=== PATIENT | female | born 1980 | race African-American/Black ===

== ENCOUNTER 2018-03-10 03:43 | Inpatient (IN) | payer SELFPAY ==
[2018-03-10] MEDS ORDERED: Fentanyl 100 MCG/2 ML VIAL ONE ×2 (04:23→07:12)
[2018-03-10 07:14] LABS: Hemoglobin 11.1 g/dL (12.0-16.0); Mean Corpuscular HGB CONC 32.2 g/dL (32.0-36.0); Mean Corpuscular Hemoglobin 27.2 pg (27.0-31.0); Mean Corpuscular Volume 84.3 fL (78.0-98.0); Mean Platelet Volume 9.2 fL (7.4-10.4); Platelet Count 299 thou/uL (130-400); RBC Distribution Width 14.8 % (11.5-14.5)
[2018-03-10 07:19] LABS: INR-International Normal Ratio 1.1; PTT 32.8 SEC (22.9-36.1); Prothrombin Time 14.2 SEC (12.0-14.7)
[2018-03-10 07:32] LABS: BHCG - Serum Negative (NEGATIVE); Pregs Control Background? CLEAR/WHITE (CLR/WHITE); Pregs Control Bar Appear? YES (CONTROL BAR)
[2018-03-10 07:41] LABS: ALT (SGPT) 8 U/L (8-55); AST (SGOT) 11 U/L (5-34); Albumin 2.8 g/dL (3.5-5.0); Alkaline Phosphatase 79 U/L (40-150); Anion Gap 12 mmol/L (10-20); BUN (Urea Nitrogen) 9 mg/dL (7.0-18.7); Bilirubin, Total 0.4 mg/dL (0.2-1.2); Calc. Creatinine Clearance 0 mL/min (70-130); Calcium 8.1 mg/dL (7.8-10.44); Carbon Dioxide 21 mmol/L (22-29); Chloride 106 mmol/L (98-107); Estimated GFR-MDRD Greater than 90; Globulin 3.1 g/dL (2.4-3.5); Glucose 174 mg/dL (70-105); Potassium 3.2 mmol/L (3.5-5.1); Protein, Total 5.9 g/dL (6.0-8.3); Sodium 136 mmol/L (136-145)
[2018-03-10 07:45] LABS: Troponin I Less than 0.010 ng/mL (< 0.028)
[2018-03-10 07:51] LABS: Band 10 % (5-11); Eosinophils 4 % (0-10); Lymphocytes 10 % (21-51); MDiff Complete? YES; Monocytes 4 % (0-10); Neutrophil 70 % (42-75); PLT Morphology Comment Appears Adequate; Polychromasia SLIGHT = 2-3 cells (100X) (0-2/hpf); Reactive Lymphocytes 2 % (0-10)
[2018-03-10] MEDS ORDERED: metroNIDAZOLE 500 MG/100 ML BAG ONE (08:10)
[2018-03-10] MEDS ORDERED: Potassium Chloride 20 MEQ/100 ML PREMIX BAG ONE (08:12)
[2018-03-10] MEDS ORDERED: Potassium Chloride 20 MEQ TAB PO SCH ×2 (08:15→11:00)
[2018-03-10] MEDS ORDERED: Acetaminophen 325 MG TAB PO PRN (08:15)
[2018-03-10] MEDS ORDERED: ISOVUE-370 76%-LOCM 1 ML ONE (10:08)
[2018-03-10] MEDS: Potassium Chloride 20 MEQ in Premix Bag 1 BAG IVPB SCH ×2 (10:36→11:18)
[2018-03-10 11:08] VITALS: BMI 38.0
--- NOTE | 2018-03-10 11:24 | CT ---
PRELIMINARY REPORT/[facility]/EMERGENTY AFTER-HOURS PROCEDURE CT Angiography Chest With Intravenous Contrast CLINICAL HISTORY: 37 years old, female; Pain; Chest pain; Abdominal pain; Localized; Other: Generalized; Patient HX: F3 5 presents to ed for syncope. Ems reports pt states she has been constipated all day and had gotten u p to use the restroom when she had a syncopal episode. Ems says pt complains of abd pain, distension, and difficulty breathing following the fall. Pt states she needs to use the bathroom. Pt denies taking pain medications. Ems states pt has HX of cardiac tamponade approx. 1 year ago. TECHNIQUE: Axial computed tomographic angiography images of the chest with intravenous contrast using pulmonary embolism protocol. MIP reconstructed images were created and reviewed. Coronal and sagittal reformatted images were created and reviewed. COMPARISON: No relevant prior studies available. FINDINGS: Pulmonary arteries: Limited evaluation of the pulmonary arteries due to suboptimal contrast opacifica tion, however there is no obvious central pulmonary embolism. Aorta: Somewhat limited evaluation of the ascending aorta due to motion. Otherwise no evidence of aor tic aneurysm or dissection. Lungs: No acute findings. No mass. No consolidation. Mild linear and dependent atelectasis. Few stabl e punctate nodules. Pleural space: No acute findings. No significant effusion. No pneumothorax. Heart: No cardiomegaly. Stable mild pericardial fluid. Thyroid: Probable small thyroid nodules. Bones/joints: No acute fracture. No dislocation. Soft tissues: No acute findings. Lymph nodes: Redemonstration of prominent bilateral axillary, retropectoral and mediastinal lymph nod es. IMPRESSION: No acute findings. No aortic dissection or aneurysm. CT Angiography Abdomen With Intravenous Contrast TECHNIQUE: Axial computed tomographic angiography images of the abdomen with intravenous contrast. MIP reconstru cted images were created and reviewed. Coronal and sagittal reformatted images were created and reviewed. COMPARISON: No relevant prior studies available. FINDINGS: Aorta: No acute findings. No thoracic aortic aneurysm or dissection. Celiac trunk and mesenteric arteries: No acute findings. No occlusion or significant stenosis. Renal arteries: No acute findings. No occlusion or significant stenosis. Lung bases: No acute findings. No mass. No consolidation. Liver: No acute findings. Fatty liver. No mass. Gallbladder and bile ducts: The gallbladder is contracted. Pancreas: No acute findings. No ductal dilation. No mass. Spleen: No acute findings. No splenomegaly. Adrenals: No acute findings. No mass. Kidneys and ureters: No acute findings. No hydronephrosis. No solid mass. Stomach and bowel: Ascending and transverse colon wall thickening compatible with colitis. Fluid fill ed small bowel loops could relate to enteritis. No evidence of bowel obstruction. Diverticulosis. Intraperitoneal space: No significant fluid collection. No free air. Bones/joints: No acute fracture. No dislocation. Soft tissues: No acute findings. No mass. Lymph nodes: No lymphadenopathy. IMPRESSION: Colitis and possible enteritis. No acute findings in the arteries of the abdomen. Thank you for allowing us to participate in the care of your patient. Dictated and Authenticated by: Odilon Padilla MD 03/10/2018 5:19 AM Central Time ([place] & [place]) FINAL REPORT CT ANGIOGRAM OF THE THORACIC AORTA CT ANGIOGRAM OF THE ABDOMINAL AORTA: HISTORY: Evaluate for dissection. Pain. Syncope. TECHNIQUE: CT angiogram of the thoracic and abdominal aorta performed in the axial plane. Three-dimensional ref ormatted images are submitted for interpretation. FINDINGS: This report is in agreement with the preliminary report by [facility]. No evidence of dissection or aneurys m with regards to the thoracic or abdominal aorta. There is mucosal thickening involving multiple loops of small bowel suggesting enteritis. There is a lso mucosal thickening involving the right hemicolon suggesting possible colitis. POS: [facility]
[2018-03-10 11:28] LABS: Troponin I Less than 0.010 ng/mL (< 0.028)
[2018-03-10] MEDS: Famotidine/PF 20 mg/2ml Vial SLOW IVP SCH ×2 (12:11→20:48)
--- NOTE | 2018-03-10 12:35 | CON ---
DATE OF CONSULTATION: 03/10/2018 REQUESTING PHYSICIAN: Dr. Avila in the emergency room. CHIEF COMPLAINT: Chest pain. HISTORY OF PRESENT ILLNESS: The patient is a 37-year-old black woman, who presents with about a 1-we ek history of burning chest pain. She has been having some epigastric and left upper quadrant bloati ng and cramping and early this morning feeling constipated. She went to the bathroom. On coming heena k from the bathroom, she told her family, she did not really feel right and then she fainted. She wa s brought to the emergency room where initially she was found to have a heart rate of 120 and blood p ressure 79/61, both improved with IV fluids, and at the time, I was writing my initial note, her hear t rate was 107 and blood pressure 125/84. The patient denies any fever, any cough, any pleuritic saeid ure to the chest pain, any changes in the pain associated with positioning. She says that she has be en able to consistently lie flat, as she currently is without any increase in pain or any shortness o f breath. The patient not quite 2 years ago, presented with a 3-day history of chest pain and shortn ess of breath, and at that time was found to be in tamponade with a large pericardial effusion with r ight-sided collapse on echocardiography. She was markedly tachycardic and hypotensive. At that time , about 400 mL of serous fluid was drained that had a high LDH, but had negative aerobic and anaerobi c cultures. No evidence of malignancy on cytology of fluid or pathology of the pericardium. Old bonnie trophils were seen microscopically, and grossly the pericardium was described as being acutely inflam ed. In reviewing the patient's previous encounters here, going back to 11/2012, there is a presentat ion, described as being for suicidal ideation and one for overdose. There are presentations for low back pain, headaches, dental pain, and chest pain. In reviewing previous tox screens from 11/2012- when the last tox screen here was done, there are multiple positive findings, essentially all o f the positive screens having multiple substances detected including opiates, phencyclidine, amphetam mirtha, benzodiazepines, cocaine, and cannabinoids. HOME MEDICATIONS: Listed as Zoloft, Seroquel, and Ultram. ALLERGIES: Reports an adverse reaction to MECLIZINE. SOCIAL HISTORY: She admits to smoking. PHYSICAL EXAMINATION: GENERAL: She is lying flat and is reasonably comfortable. VITAL SIGNS: Heart rate was 107, blood pressure 125/84, O2 sats 100% wearing a nonrebreather mask. She has no visible JVD even lying supine. LUNGS: She has clear breath sounds. CARDIOVASCULAR: Regular rate and rhythm. I hear no rub. ABDOMEN: Obese, soft, and nontender. She has a well-healed surgical scar consistent with a past his tory of a subxiphoid pericardial window. EXTREMITIES: She has no clubbing, cyanosis, or edema. The ER physician described a bedside ultrasound suggestive of pericardial effusion with tamponade, bu t the CT scan of her chest shows only a small amount of pericardial fluid with a somewhat thickened p ericardium. I see no dissection flaps or any obvious pulmonary emboli. Her stomach does seem to be rather distended and quite full. LABORATORY AND X-RAY FINDINGS: She had a white count of 17, hemoglobin 11.1, hematocrit 34.6, platel ets 299,000. Potassium was 3.2, otherwise electrolytes were normal. Glucose is 174, BUN 9, creatini ne 0.86. LFTs were normal. Calcium 8.1, albumin 2.8. Serum test was negative. Echocardi ography seemed to confirm thickening of her pericardium and only a very small amount of pericardial e ffusion. Her inferior cava was relatively small and the hepatic veins were collapsible. IMPRESSION AND RECOMMENDATIONS: This does not appear to be tamponade or a constrictive pericarditic process. Given the patient's past history, it might be worthwhile checking a drug screen for various substances of abuse. At this point, I do not see any need for my continued involvement.
[2018-03-10] MEDS: metroNIDAZOLE 500 MG in Premix Bag 1 BAG IVPB SCH ×2 (14:08→22:31)
[2018-03-10] MEDS: Heparin 5,000 UNITS/ML VIAL SC SCH ×2 (14:09→20:47)
[2018-03-10 14:10] LABS: Benzodiazepine Screen Detected (NotDetected); Cocaine Metabolite Screen Detected (NotDetected); Medtox Reader # READER 4; Opiate Screen Detected (NotDetected); THC/Cannabinoid Screen Detected (NotDetected); Tricyclic Screen Detected (NotDetected)
[2018-03-10 14:11] LABS: Amphetamine Not Detected (NotDetected); Barbiturates Screen Not Detected (NotDetected); Medtox Control Line Valid? VALID (VALID); Methadone Not Detected (NotDetected); Methamphetamine Not Detected (NotDetected); Oxycodone Screen Not Detected (NotDetected); Phencyclidine (PCP) Not Detected (NotDetected)
[2018-03-10 14:59] LABS: Troponin I Less than 0.010 ng/mL (< 0.028)
[2018-03-10] MEDS ORDERED: Ketorolac Tromethamine 30 MG/ML VIAL IVP PRN (17:21)
[2018-03-10] MEDS ORDERED: traMADol HCl 50 MG TAB PO PRN (17:21)
--- NOTE | 2018-03-10 19:22 | HP ---
CHIEF COMPLAINT: Abdominal pain. HISTORY OF PRESENT ILLNESS: Patient is a 37-year-old female with a history of cardiac tamponade in t he past 2 years ago and anxiety who presents to the hospital with complaints of abdominal pain. Tiffany ent stated that she ate a lot of food yesterday while she was watching movies with her family. While she was eating, she had some lower abdominal cramping, so she went to the bathroom. Stated that she only had flatulence, no bowel movement. The patient did that again the second time; however, the ird time her sister gave her Ex-Lax. Patient stated that she had significant abdominal cramping to t he point that she got very diaphoretic, got very cold and passed out. The patient denies any fevers or chills. She denies any diarrhea. She denies eating out. She states that she ate mac and cheese last night. The patient has been under a lot of stress. Her 14-year-old daughter has been admitted to [facility] for anxiety attacks. Patient denies any other symptoms. She states that she has bee n having this chest pain which has been going on for the past 2-3 weeks. ER COURSE: The patient was seen in the ER, underwent CTA, aortic dissection and also an echocardiogr am which did not indicate any tamponade. The patient also was seen by CV surgeon. No indications fo r any further investigation was noted. PAST MEDICAL HISTORY: As I mentioned, patient has a history of anxiety. She also has a history of c ardiac tamponade. PAST SURGICAL HISTORY: She has had a pericardial window and also she had had C-sections. CURRENT MEDICATIONS: The patient takes 400 mg of Seroquel at night and she takes 20 mg of Prozac in the day. ALLERGIES: She has allergies to MECLIZINE. SOCIAL HISTORY: She does smoke marijuana. Denies any alcohol or smoking history. PHYSICAL EXAMINATION: VITAL SIGNS: Her temperature is as of the following 98.2, heart rate of 107, 16, 98, 104/66. GENERAL: She is awake, alert, oriented x3, very emotional, crying. CARDIOVASCULAR: S1, S2 present. No murmurs, rubs or gallops. LUNGS: Clear upon auscultation. No rhonchi, wheezes noted. She does have pain upon palpation to he r chest area. ABDOMEN: Obese. Bowel sounds are present x2. EXTREMITIES: She has mild pain upon palpation to her lower abdominal area. Pedal pulses are present x2. NEUROLOGIC: No focal deficits noted. SKIN: No cuts or bruises or lesions noted. REVIEW OF SYSTEMS: All negative except for the ones mentioned above. LABORATORY DATA AND IMAGING DATA: WBCs of 17.0, hemoglobin of 11.1, hematocrit of 34.6, platelets of 299. She has bands of 10. Chemistry: Sodium of 136, potassium of 3.2, her BUN is 9, creatinine 0. 86, glucose of 174. Her troponin x3 has been negative. Serum test was negative. She had a CT dissection which indicated that she has ascending and transverse colon wall thickening compatibl e with colitis. ASSESSMENT AND PLAN: The patient is a very pleasant 37-year-old female comes in for abdominal pain 1. Acute colitis. Patient denies any diarrhea. She denies eating out anywhere. We will start the patient on some IV hydration. We will also give her Cipro and Flagyl. Currently, we will continue t o monitor. We will put her on n.p.o., advance as tolerated. 2. Hypokalemia. We will replace the potassium. 3. Leukocytosis, which is most likely secondary to the colitis. 4. Chest pain. Troponins x3 are negative. There is no tamponade or pericarditis that was noted. S he has been evaluated by CV Surgery also. 5. Anxiety. Patient is very anxious. She has been crying significantly since she has a lot of stre ssors at home. 6. Deep venous thrombosis prophylaxis. We will put patient on subcu heparin.
[2018-03-10] MEDS: Dextrose 5 % And 0.9 % NaCl 1,000 ML IV SCH (20:46)
[2018-03-11] MEDS: metroNIDAZOLE 500 MG in Premix Bag 1 BAG IVPB SCH (05:39)
[2018-03-11 05:51] LABS: Anion Gap 7 mmol/L (10-20); BUN (Urea Nitrogen) 5 mg/dL (7.0-18.7); Calc. Creatinine Clearance 160 mL/min (70-130); Calcium 8.3 mg/dL (7.8-10.44); Carbon Dioxide 23 mmol/L (22-29); Chloride 111 mmol/L (98-107); Estimated GFR-MDRD Greater than 90; Glucose 111 mg/dL (70-105); Potassium 3.6 mmol/L (3.5-5.1); Sodium 137 mmol/L (136-145)
[2018-03-11 05:52] LABS: #Eosinphils 0.4 thou/uL (0.0-0.7); #Lymphocytes 2.4 thou/uL (1.20-3.40); #Monocytes 0.6 thou/uL (0.11-0.59); #Neutrophils 7.5 thou/uL (1.40-6.50); %Basophils 0.1 % (0.0-1.0); %Eosinophils 3.8 % (0.0-10.0); %Lymphocytes 22.2 % (21.0-51.0); %Monocytes 5.5 % (0.0-10.0); %Neutrophils 68.4 % (42.0-75.0); Hemoglobin 10.3 g/dL (12.0-16.0); Mean Corpuscular HGB CONC 30.8 g/dL (32.0-36.0); Mean Corpuscular Hemoglobin 25.9 pg (27.0-31.0); Mean Corpuscular Volume 83.9 fL (78.0-98.0); Mean Platelet Volume 8.7 fL (7.4-10.4); Platelet Count 311 thou/uL (130-400); RBC Distribution Width 14.6 % (11.5-14.5); Red Blood Cell (RBC) Count 3.98 mill/uL (4.20-5.40); White Blood Cell (WBC) Count 10.9 thou/uL (4.8-10.8)
[2018-03-11] MEDS ORDERED: PARoxetine 20 MG TAB PO SCH (09:00)
[2018-03-11] MEDS: Famotidine/PF 20 mg/2ml Vial SLOW IVP SCH (09:14)
[2018-03-11] MEDS: Heparin 5,000 UNITS/ML VIAL SC SCH (09:15)
[2018-03-11] MEDS: Dextrose 5 % And 0.9 % NaCl 1,000 ML IV SCH (09:15)
[2018-03-11 11:53] VITALS: BP 134/82; TEMP 98.3
--- NOTE | 2018-03-11 14:16 | DIS ---
DATE OF ADMISSION: 03/10/2018 DATE OF DISCHARGE: 03/11/2018 DISCHARGE DIAGNOSES: 1. Initially was acute colitis. 2. Abdominal pain. 3. Chest pain. HOSPITAL COURSE: The patient is a very pleasant 37-year-old female with a history of cardiac tampona de, who initially presented to the hospital with abdominal cramping and also some chest discomfort. The patient initially in the ER underwent a CT dissection protocol, which did indicate that she did h ave some transverse and ascending colon thickening compatible with colitis. She also had no evidence of bowel obstruction; however, had some diverticulosis. Her CT dissection was negative for any sour ce of aneurysm or dissection. She also had an echocardiogram which indicated no cardiac tamponade, E F was 60%-65% and was essentially a normal study. She was also seen by CV Surgery for possible cardi ac tamponade, which again there was no cardiac tamponade. Patient was treated initially with IV hydr ation and with some antibiotics. She feels a lot better. She is tolerating her meals. She has had multiple bowel movements and the patient wants to go home. PHYSICAL EXAMINATION: VITAL SIGNS: 98.3, 78, 16, 98% room air, 134/82. GENERAL: She is awake, alert, oriented x3, does not appear in distress. CARDIOVASCULAR: S1, S2 present. No murmurs, rubs or gallops. ABDOMEN: Soft, nontender. Bowel sounds are present. EXTREMITIES: No edema. Pedal pulses present x2. Again, she will be discharged home. Follow up with primary. She is going to be on Augmentin 1 q.8 h ours for 5 days, Seroquel 400 at bedtime, and paroxetine 20 mg daily. She was asked to call back if her symptoms worsen.
== END 2018-03-11 11:59 | disposition home or self-care (01) | DRG 392 ==
LOC: ERS 03:43 → 2NO 09:54
PROVIDERS: ADMIT Internal Medicine; ATTEND Internal Medicine
DX: K52.9 Noninfective gastroenteritis and colitis, unspecified (principal); F41.9 Anxiety disorder, unspecified; E87.6 Hypokalemia
CPT/HCPCS: 36415; 71275; 80048; 80053; 80306; 83690; 84484; 84703; 85025; 85610; 85730; 87040; 93005; 93306; 96361; 96365; 96368; 96375; 99406; J0744; J1644; J3010; J3480; S0028

== ENCOUNTER 2020-03-27 18:34 | Inpatient (IN) | payer SELFPAY ==
[2020-03-27] MEDS ORDERED: Dexamethasone 4 mg/ml Vial ONE (19:58)
[2020-03-27] MEDS ORDERED: Morphine 4 MG/ML VIAL ONE (20:06)
[2020-03-27 22:11] LABS: SARS-CoV-2 NAA Rapid Test Not Detected (NotDetected)
--- NOTE | 2020-03-27 22:44 | HP ---
REASON FOR ADMISSION: Shortness of breath and cough. HISTORY OF PRESENT ILLNESS: This is a 39-year-old female patient who presented to the ED at [facility] reporting cough and shortness of breath that has been ongoing for the past two days. She initially was tachycardic and her oxygen saturation was in the low 90s on room air. She required to be on 1 L of oxygen. Otherwise, she has an appetite, but does not want to eat and she is coughing a lot and causing her pain in her back, which is her main complaint. She does report slight shortness of breath with ambulation. She does not endorse any fevers or chills. PAST MEDICAL HISTORY: Colitis. SOCIAL HISTORY: She smokes 6 cigarettes a day. Drinks alcohol occasionally. Smokes marijuana occasionally. ALLERGY: To meclizine. REVIEW OF SYSTEMS: All systems reviewed except the above mentioned, found to be negative. FAMILY HISTORY: Negative. PHYSICAL EXAMINATION: GENERAL: Awake, alert, oriented, is coughing quite a bit and complains of pain in her back whenever she coughs. VITAL SIGNS: Her blood pressure is 131/94, heart rate of 115, saturating 100% on 1 L nasal cannula. HEAD: Nontraumatic, normocephalic. Pupils are equal, reactive. Extraocular movements are intact. Nonicteric sclerae. Well injected conjunctivae. Oral mucosa normal. Nasal mucosa normal. NECK: Supple. No adenopathy. No murmur. Thyroid is not palpable. Trachea is midline. No supraclavicular adenopathy. CARDIAC: S1, S2 regular. No murmur. No gallops. No friction rubs. No displacement of PMI. LUNGS: Poor respiratory effort. Bowel sounds are positive, nontender. ABDOMEN: No visceromegaly, no lower extremity edema. No cyanosis noted. NEUROLOGIC: Cranial nerves 2 through 12 within normal limits. Normal motor function and sensory function. Normal reflexes. LABORATORY DATA: Blood work shows WBC of 25.3, hemoglobin of 10.4. Previous hemoglobin in 2018, 10.3, platelets of 336, and bands of 40%. D-dimer 0.74. Sodium 138, potassium 3.5, bicarb 20. IMAGING: CT of the chest shows diffuse confluent ground-glass infiltrate with upper lobe and superior segment lower lobe predominance. The periphery of the lung is relatively spared. Pulmonary edema is a consideration, but infection such as COVID is strongly considered in the differential as well. ASSESSMENT AND PLAN: This is a 39-year-old female patient presenting with what seems to be COVID pneumonia. She does complain of back pain whenever she coughs. The patient will be admitted to [facility]. will be on IV Decadron and will provide her with pain control, so she can take a full deep breath and also she will be on Lovenox for DVT prophylaxis. Job ID: [id number]
[2020-03-27] MEDS: Morphine 2 MG/ML VIAL SLOW IVP PRN (23:45)
[2020-03-27] MEDS: guaiFENesin/Codeine Phosphate 200 mg/20 mg 10 ml UD Cup PO PRN (23:45)
[2020-03-28 00:16] VITALS: BMI 35.4
[2020-03-28] MEDS: Morphine 2 MG/ML VIAL SLOW IVP PRN (03:52)
[2020-03-28] MEDS: guaiFENesin/Codeine Phosphate 200 mg/20 mg 10 ml UD Cup PO PRN (05:48)
[2020-03-28 05:56] LABS: Anion Gap 12 mmol/L (10-20); BUN (Urea Nitrogen) 8 mg/dL (7.0-18.7); Calc. Creatinine Clearance 145 mL/min (70-130); Calcium 8.9 mg/dL (7.8-10.44); Carbon Dioxide 23 mmol/L (22-29); Chloride 104 mmol/L (98-107); Estimated GFR-MDRD Greater than 90; Glucose 128 mg/dL (70-105); Potassium 3.7 mmol/L (3.5-5.1); Sodium 135 mmol/L (136-145)
[2020-03-28 05:58] LABS: Hemoglobin 9.9 g/dL (12.0-16.0); Mean Corpuscular HGB CONC 31.2 g/dL (32.0-36.0); Mean Corpuscular Hemoglobin 24.3 pg (27.0-31.0); Mean Corpuscular Volume 77.9 fL (78.0-98.0); Mean Platelet Volume 9.3 fL (7.4-10.4); Platelet Count 333 thou/uL (130-400); Red Blood Cell (RBC) Count 4.05 mill/uL (4.20-5.40); White Blood Cell (WBC) Count 23.4 thou/uL (4.8-10.8)
[2020-03-28 06:02] LABS: Band 8 % (5-11); Lymphocytes 1 % (21-51); MDiff Complete? YES; Monocytes 3 % (0-10); Neutrophil 88 % (42-75)
[2020-03-28] MEDS ORDERED: Acetaminophen 325 MG TAB PO PRN (08:21)
[2020-03-28] MEDS ORDERED: Enoxaparin Sodium 40 MG/0.4 ML SYRINGE SC SCH ×4 (09:00→21:00)
[2020-03-28] MEDS: guaiFENesin ER 600 MG TAB PO SCH ×2 (09:10→20:46)
[2020-03-28] MEDS: Ascorbic Acid 500 mg Chewable Tablet PO SCH (09:10)
[2020-03-28] MEDS: Albuterol 200 PUFF (6.7GM INHALER) INH SCH ×4 (09:40→22:20)
[2020-03-28] MEDS ORDERED: Albuterol Sulfate 2.5 mg/3 ml Neb NEB SCH (10:30)
[2020-03-28] MEDS: Dexamethasone 6 MG in Sodium Chloride 0.9% 50 ML IVPB SCH (11:07)
[2020-03-28] MEDS ORDERED: Diabetic Tussin 200 MG/10 ML UDCUP PO PRN (14:52)
[2020-03-28] MEDS ORDERED: Nicotine 14 MG PATCH TD PRN (14:54)
[2020-03-28] MEDS ORDERED: Ondansetron ODT 4 MG TAB PO PRN (14:56)
[2020-03-28] MEDS ORDERED: Ondansetron PF 4 MG/2 ML Vial IVP PRN (14:56)
[2020-03-28] MEDS ORDERED: Calcium Carbonate 500 MG ChewTAB PO PRN (14:56)
[2020-03-28] MEDS ORDERED: Senokot S 8.6-50 MG TAB PO PRN (14:56)
[2020-03-28] MEDS: HYDROcodone/Acetaminophen 5/325 mg Tablet PO PRN (14:58)
[2020-03-28] MEDS ORDERED: Vancomycin 1 GM in Premix Bag 1 BAG IVPB SCH (15:15)
[2020-03-28] MEDS: Cefepime 2 GM in Sodium Chloride 0.9% 100 ML IVPB SCH (17:06)
[2020-03-28] MEDS: Vancomycin 1 GM in Premix Bag 1 BAG IVPB SCH (17:07)
[2020-03-28] MEDS: Cyclobenzaprine 10 MG TAB PO PRN (17:10)
--- NOTE | 2020-03-28 18:39 | PDOC.HOSPP ---
- Subjective Encounter Date: 03/28/20 Encounter Time: 15:30 Subjective: Patient seen and examined for respiratory failure/sepsis. Shortness of breath slightly better. Requiring supplemental oxygen. Cough with some production. - Objective Vital Signs & Weight: Vital Signs (12 hours) Temp Pulse Resp BP Pulse Ox 03/28/20 16:00 98.6 F 98 20 136/86 96 03/28/20 14:56 98.3 F 94 18 108/75 97 03/28/20 08:00 98.6 F 79 18 119/84 99 Weight Weight 194 lb 1.6 oz I&O: 03/27/20 03/28/20 03/29/20 06:59 06:59 06:59 Intake Total 800 800 Balance 800 800 Result Diagrams: 03/28/20 05:17 03/28/20 05:17 Radiology Reviewed by me: Yes (CT chestbilateral infiltrates) Hospitalist ROS - Review of Systems Constitutional: reports: weakness, malaise Gastrointestinal: denies: nausea, vomiting, abdominal pain, diarrhea, constipation, melena, hematochezia, other Genitourinary: denies: dysuria, frequency, incontinence, hematuria, retention, other - Medication Medications: Active Medications Generic Name Dose Route Start Last Admin Trade Name Freq PRN Reason Stop Dose Admin Hydrocodone Bitart/Acetaminophen 1 tab 03/27/20 21:37 03/28/20 14:58 Hydrocodone/Acetaminophen 5/325 Mg Tablet PO 1 tab Q4H PRN Administration Pain Albuterol Sulfate 2 puff 03/28/20 10:30 03/28/20 18:12 Albuterol 200 Puff (6.7gm Inhaler) INH 2 puff G2NS-SE JOHN Administration Ascorbic Acid 1,000 mg 03/28/20 09:00 03/28/20 09:10 Ascorbic Acid 500 Mg Chewable Tablet PO 1,000 mg DAILY JOHN Administration Cyclobenzaprine HCl 5 mg 03/28/20 14:52 03/28/20 17:10 Cyclobenzaprine 10 Mg Tab PO 5 mg TIDPRN PRN Administration Muscle Spasm Guaifenesin 600 mg 03/28/20 09:00 03/28/20 09:10 Guaifenesin Er 600 Mg Tab PO 600 mg Q12HR JOHN Administration Dexamethasone 6 mg/ Sodium 50.6 mls @ 100 mls/hr 03/28/20 09:00 03/28/20 11:07 Chloride IVPB 50.6 mls DAILY JOHN Administration Cefepime HCl 2 gm/ Sodium 100 mls @ 200 mls/hr 03/28/20 16:00 03/28/20 17:06 Chloride IVPB 100 mls 0400,1600 JOHN Administration Vancomycin HCl 1 gm/ Device 200 mls @ 200 mls/hr 03/28/20 16:00 03/28/20 17:07 IVPB 200 mls 0400,1600 JOHN Administration Sodium Chloride 10 ml 03/28/20 09:00 03/28/20 09:10 Flush - Normal Saline 10 Ml Syringe IVF 10 ml Q12HR JOHN Administration - Exam General Appearance: ill appearing Neck: supple, no JVD Heart: RRR, no gallops, no rubs, normal peripheral pulses Respiratory: no wheezes, rales, rhonchi, tachypneic Gastrointestinal: soft, non-tender, normal bowel sounds, no guarding, no rigidity Extremities: no cyanosis, no clubbing Neurological: no new deficit Psychiatric: normal affect, A&O x 3 Hosp A/P - Plan DVT proph w/lovenox, DVT proph w/SCDs Acute hypoxic respiratory failure due to ? COVID-19 pneumoniaCovid PCR negative on admission (symptom onset approximately 1 week ago) Severe sepsis due to above Hyponatremia Obesity with a BMI 35.5 Chronic anemia suspected due to nutritional deficiency Tobacco dependence Plan: Continue dexamethasone. Will add vancomycin with cefepime for suspected bacterial pneumonia. Will recheck COVID-19 testing. Check inflammatory markers in a.m. Monitor vancomycin level. Lovenox for DVT prophylaxis. Continue O2 supplementation. Add bronchodilators. Continue other medications as above.
[2020-03-28] MEDS: Famotidine 20 MG TAB PO SCH (20:46)
[2020-03-28] MEDS: Zinc Sulfate 220 MG CAP PO SCH (20:46)
[2020-03-28 23:59] LABS: SARS-CoV-2 MS2 Positive; SARS-CoV-2 N Gene Negative; SARS-CoV-2 S Gene Negative; SARS-CoV-2 by NAA Not Detected (NotDetected); SARS-CoV-2 orf1ab Negative
[2020-03-29] MEDS: Cefepime 2 GM in Sodium Chloride 0.9% 100 ML IVPB SCH ×2 (03:30→15:27)
[2020-03-29] MEDS: Albuterol 200 PUFF (6.7GM INHALER) INH SCH ×6 (03:30→21:21)
[2020-03-29] MEDS: HYDROcodone/Acetaminophen 5/325 mg Tablet PO PRN ×3 (03:35→21:21)
[2020-03-29] MEDS: Cyclobenzaprine 10 MG TAB PO PRN (04:50)
[2020-03-29] MEDS: Vancomycin 1 GM in Premix Bag 1 BAG IVPB SCH ×2 (04:50→16:32)
[2020-03-29 06:25] LABS: Hemoglobin 9.2 g/dL (12.0-16.0); Mean Corpuscular HGB CONC 31.4 g/dL (32.0-36.0); Mean Corpuscular Hemoglobin 24.4 pg (27.0-31.0); Mean Corpuscular Volume 77.7 fL (78.0-98.0); Mean Platelet Volume 9.7 fL (7.4-10.4); Platelet Count 309 thou/uL (130-400); RBC Distribution Width 14.9 % (11.5-14.5); Red Blood Cell (RBC) Count 3.79 mill/uL (4.20-5.40); White Blood Cell (WBC) Count 20.6 thou/uL (4.8-10.8)
[2020-03-29 06:30] LABS: Prothrombin Time 13.8 sec (12.0-14.7)
[2020-03-29 06:31] LABS: PTT 37.5 sec (22.9-36.1)
[2020-03-29 06:32] LABS: D-Dimer Test 0.43 *mcg/mL (0.27-0.43)
[2020-03-29 06:41] LABS: ALT (SGPT) 9 U/L (8-55); AST (SGOT) 12 U/L (5-34); Albumin 3.1 g/dL (3.5-5.0); Alkaline Phosphatase 69 U/L (40-110); Anion Gap 12 mmol/L (10-20); BUN (Urea Nitrogen) 15 mg/dL (7.0-18.7); Bilirubin, Total Less than 0.2 mg/dL (0.2-1.2); CRP (Inflammatory) 5.94 mg/dL (= or < 0.5); Calc. Creatinine Clearance 136 mL/min (70-130); Calcium 8.1 mg/dL (7.8-10.44); Carbon Dioxide 22 mmol/L (22-29); Chloride 105 mmol/L (98-107); Estimated GFR-MDRD Greater than 90; Globulin 3.9 g/dL (2.4-3.5); Glucose 124 mg/dL (70-105); Iron 17 ug/dL (50-170); Iron Binding Capacity, Total 316 mcg/dL (265-497); Phosphorus 2.3 mg/dL (2.3-4.7); Potassium 3.3 mmol/L (3.5-5.1); Sodium 136 mmol/L (136-145)
[2020-03-29] MEDS ORDERED: Iron, Sodium Ferric Gluconate 250 MG in Sodium Chloride 0.9% 100 ML IVPB SCH (08:00)
[2020-03-29] MEDS ORDERED: Iron Sucrose Complex 200 MG in Sodium Chloride 0.9% 100 ML IVPB SCH (08:00)
[2020-03-29 08:14] LABS: Lymphocytes 23 % (21-51); MDiff Complete? YES; Monocytes 2 % (0-10); Neutrophil 75 % (42-75); Platelet Morphology Comment Appears Adequate
--- NOTE | 2020-03-29 09:27 | CON ---
DATE OF CONSULTATION: 03/29/2020 CONSULTING PHYSICIAN: Freddy Melendez MD REASON FOR CONSULTATION: Pneumonia. HISTORY OF PRESENT ILLNESS: Ms. Arevalo is a 39-year-old female, who was admitted to the hospital late on 03/27/2020 with complaints of 1-week history of a cold-type illness, cough, congestion, but no fever. It was initially thought that she might have COVID, although she has been exposed to no sick people. She has had 2 negative COVID tests since admission. PAST MEDICAL HISTORY: Some type of colitis. PAST SURGICAL HISTORY: Negative. SOCIAL HISTORY: Smokes 6 cigarettes per day. Occasionally smokes marijuana. Occasionally drinks alcohol. ALLERGIES: MECLIZINE. REVIEW OF SYSTEMS: Remarkable for weakness, myalgias, cough, and congestion. Otherwise, negative. FAMILY MEDICAL HISTORY: Unremarkable. MEDICATIONS PRIOR TO ADMISSION: None. CURRENT INPATIENT MEDICATIONS: Reviewed, see chart. PHYSICAL EXAMINATION: VITAL SIGNS: Temperature 98.1, pulse 76, respirations 20, O2 saturation 98% on room air, and blood pressure 112/75. HEENT: Unremarkable. NECK: No adenopathy or JVD. LUNGS: Respiratory crackles bilaterally. CARDIAC: S1 and S2, regular. ABDOMEN: Soft. EXTREMITIES: No edema. No rashes or bruising are noted. LABORATORY DATA: White blood cell count 20.6, hematocrit 29.4, and platelet count 309. INR 1.0, PTT 37.5. D-dimer 0.43. Sodium 136, potassium 3.3, chloride 105, CO2 of 22, BUN 15, creatinine 0.7, glucose 124. C-reactive protein 5.9, ferritin 41.4. Her chest x-ray and CT scan showed diffuse bilateral pulmonary infiltrates, concentrated mainly in the upper lobes. The periphery is spared. This is a typical pattern of pulmonary edema. ASSESSMENT: Atypical pneumonia versus pulmonary edema. RECOMMENDATIONS: 1. HIV test. 2. Echocardiogram. 3. Check BNP level. 4. Add Levaquin for atypical coverage. 5. Since she has had 2 negative COVID tests, I would discontinue the COVID isolation. Job ID: [id number]
[2020-03-29] MEDS: Ascorbic Acid 500 mg Chewable Tablet PO SCH (10:15)
[2020-03-29] MEDS: guaiFENesin ER 600 MG TAB PO SCH ×2 (10:18→19:46)
[2020-03-29] MEDS: Famotidine 20 MG TAB PO SCH ×2 (10:18→19:46)
[2020-03-29] MEDS: Dexamethasone 6 MG in Sodium Chloride 0.9% 50 ML IVPB SCH (10:19)
[2020-03-29 10:54] LABS: HIV (1/2) Antibody/Antigen Non-Reactive (NonReactive); HIV 1/2 INDEX 0.12 S/CO (<1.00)
[2020-03-29] MEDS ORDERED: Cyclobenzaprine 10 MG TAB PO PRN (16:22)
[2020-03-29] MEDS: Zinc Sulfate 220 MG CAP PO SCH (19:46)
[2020-03-29] MEDS ORDERED: Enoxaparin Sodium 40 MG/0.4 ML SYRINGE SC SCH (21:00)
--- NOTE | 2020-03-29 22:07 | PDOC.HOSPP ---
- Subjective Encounter Date: 03/29/20 Encounter Time: 15:20 Subjective: Patient seen and examined for sepsis with bilateral infiltrate. Short of breath on minimal exertion. Denies any chest pain. Cough with minimal production. - Objective Vital Signs & Weight: Vital Signs (12 hours) Temp Pulse Resp BP Pulse Ox 03/29/20 20:00 100 03/29/20 18:00 98.6 F 62 17 133/82 97 03/29/20 16:00 98.2 F 74 17 142/81 H 97 03/29/20 14:00 98.8 F 74 17 122/86 98 03/29/20 12:00 98.2 F 71 16 129/88 97 Weight Admit Weight 194 lb 1.6 oz Weight 194 lb 1.6 oz I&O: 03/28/20 03/29/20 03/30/20 06:59 06:59 06:59 Intake Total 800 1600 Balance 800 1600 Result Diagrams: 03/30/20 05:57 03/30/20 05:57 Additional Labs: Abnormal Lab Results - Last 48 hrs 03/29/20 06:08: Potassium 3.3 L, Total Bilirubin Less than 0.2 L, Albumin 3.1 L, Globulin 3.9 H, Albumin/Globulin Ratio 0.8 L 03/29/20 06:08: WBC 20.6 H, RBC 3.79 L, Hgb 9.2 L, Hct 29.4 L, MCV 77.7 L, MCH 24.4 L, MCHC 31.4 L, RDW 14.9 H 03/29/20 06:08: Iron 17 L, C-Reactive Protein 5.94 H 03/29/20 06:08: APTT 37.5 H Microbiology - Entire Visit 03/29/20 13:52 Nasopharyngeal swab Respiratory Virus Panel (PCR) - Final Radiology Reviewed by me: Yes (CT chestbilateral infiltrates) Hospitalist ROS - Review of Systems Cardiovascular: denies: chest pain, palpitations, orthopnea, paroxysmal noc. dyspnea, edema, light headedness, other Gastrointestinal: denies: nausea, vomiting, abdominal pain, diarrhea, c onstipation, melena, hematochezia, other - Medication Medications: Active Medications Generic Name Dose Route Start Last Admin Trade Name Freq PRN Reason Stop Dose Admin Hydrocodone Bitart/Acetaminophen 1 tab 03/27/20 21:37 03/29/20 21:21 Hydrocodone/Acetaminophen 5/325 Mg Tablet PO 1 tab Q4H PRN Administration Pain Albuterol Sulfate 2 puff 03/28/20 10:30 03/29/20 21:21 Albuterol 200 Puff (6.7gm Inhaler) INH 2 puff [id number] JOHN Administration Cyclobenzaprine HCl 10 mg 03/29/20 16:22 03/29/20 21:21 Cyclobenzaprine 10 Mg Tab PO 04/01/20 16:23 10 mg TID PRN Administration Muscle Spasm Enoxaparin Sodium 40 mg 03/29/20 21:00 03/29/20 19:45 Enoxaparin Sodium 40 Mg/0.4 Ml Syringe SC 40 mg 2100 JOHN Administration Famotidine 20 mg 03/28/20 21:00 03/29/20 19:46 Famotidine 20 Mg Tab PO 20 mg BID JOHN Administration Guaifenesin 600 mg 03/28/20 09:00 03/29/20 19:46 Guaifenesin Er 600 Mg Tab PO 600 mg Q12HR JOHN Administration Cefepime HCl 2 gm/ Sodium 100 mls @ 200 mls/hr 03/28/20 16:00 03/29/20 15:27 Chloride IVPB 100 mls 0400,1600 JOHN Administration Vancomycin HCl 1 gm/ Device 200 mls @ 200 mls/hr 03/28/20 16:00 03/29/20 1 6:32 IVPB 200 mls 0400,1600 JOHN Administration Levofloxacin 750 mg/ Device 150 mls @ 100 mls/hr 03/29/20 10:00 03/29/20 12:21 IVPB 150 mls Q24HR JOHN Administration Sodium Chloride 10 ml 03/28/20 09:00 03/29/20 19:46 Flush - Normal Saline 10 Ml Syringe IVF 10 ml Q12HR JOHN Administration - Exam General Appearance: ill appearing Neck: supple, no JVD Heart: RRR, no gallops, no rubs, normal peripheral pulses Respiratory: no wheezes, normal chest expansion, rales, rhonchi Gastrointestinal: soft, non-tender, normal bowel sounds, no guarding, no rigidity Extremities: no cyanosis, no clubbing Neurological: no new deficit Musculoskeletal: generalized weakness Psychiatric: normal affect, A&O x 3 Hosp A/P - Plan DVT proph w/SCDs Acute hypoxic respiratory failure Bilateral pneumonia? Gram-negative Severe sepsis due to above Hyponatremia/hypokalemia Obesity with a BMI 35.5 Chronic anemia suspected due to iron deficiency Tobacco dependence Plan: Continue IV vancomycin with cefepime. Levaquin added today. Pulmonary input appreciated. Repeat Covid 19 testing negative. Will discontinue dexamethasone. Continue albuterol. Counseled on tobacco cessation. Respiratory viral panel negative. Check labs in a.m. Replace potassium. IV iron for iron deficiency anemia
[2020-03-30] MEDS: Albuterol 200 PUFF (6.7GM INHALER) INH SCH ×5 (03:02→18:13)
[2020-03-30] MEDS: Cefepime 2 GM in Sodium Chloride 0.9% 100 ML IVPB SCH ×2 (03:03→15:36)
[2020-03-30] MEDS: Vancomycin 1 GM in Premix Bag 1 BAG IVPB SCH ×3 (04:20→19:40)
[2020-03-30 06:19] LABS: #Basophils 0.1 thou/uL (0.0-0.2); #Eosinphils 0.2 thou/uL (0.0-0.7); #Lymphocytes 3.8 thou/uL (1.20-3.40); #Neutrophils 6.6 thou/uL (1.40-6.50); %Eosinophils 1.5 % (0.0-10.0); %Lymphocytes 32.7 % (21.0-51.0); %Monocytes 8.3 % (0.0-10.0); %Neutrophils 56.5 % (42.0-75.0); Hemoglobin 9.8 g/dL (12.0-16.0); Mean Corpuscular Hemoglobin 23.6 pg (27.0-31.0); Mean Platelet Volume 9.7 fL (7.4-10.4); Platelet Count 340 thou/uL (130-400); Red Blood Cell (RBC) Count 4.16 mill/uL (4.20-5.40); White Blood Cell (WBC) Count 11.6 thou/uL (4.8-10.8)
[2020-03-30 06:40] LABS: Phosphorus 2.6 mg/dL (2.3-4.7)
[2020-03-30 06:43] LABS: ALT (SGPT) 11 U/L (8-55); AST (SGOT) 10 U/L (5-34); Alkaline Phosphatase 67 U/L (40-110); Anion Gap 10 mmol/L (10-20); BUN (Urea Nitrogen) 11 mg/dL (7.0-18.7); Bilirubin, Total 0.2 mg/dL (0.2-1.2); Calc. Creatinine Clearance 134 mL/min (70-130); Calcium 8.3 mg/dL (7.8-10.44); Carbon Dioxide 25 mmol/L (22-29); Chloride 104 mmol/L (98-107); Estimated GFR-MDRD Greater than 90; Glucose 109 mg/dL (70-105); Potassium 3.3 mmol/L (3.5-5.1); Sodium 136 mmol/L (136-145)
[2020-03-30] MEDS: Potassium Chloride 20 MEQ TAB PO SCH ×2 (08:48→17:57)
[2020-03-30] MEDS: Saccharomyces boulardii 250 MG CAP PO SCH (08:49)
[2020-03-30] MEDS: guaiFENesin ER 600 MG TAB PO SCH ×2 (08:49→19:52)
[2020-03-30] MEDS: Multivit, Therapeutic 1 TAB PO SCH (08:49)
[2020-03-30] MEDS: Famotidine 20 MG TAB PO SCH ×2 (08:49→19:51)
[2020-03-30] MEDS ORDERED: ALPRAZolam 0.25 MG TAB PO PRN (10:24)
[2020-03-30] MEDS ORDERED: Loratadine 10 MG TAB PO SCH (10:30)
[2020-03-30 14:26] LABS: Legionella Urinary Ag Negative (Negative); Strep pneumo Urine Ag NEGATIVE (NEGATIVE)
[2020-03-30 16:14] LABS: Vancomycin, Trough 7.4 ug/mL
[2020-03-30] MEDS ORDERED: diphenhydrAMINE 25 MG CAP PO PRN (17:26)
[2020-03-30] MEDS: HYDROcodone/Acetaminophen 5/325 mg Tablet PO PRN (18:08)
--- NOTE | 2020-03-30 19:35 | PDOC.HOSPP ---
- Subjective Encounter Date: 03/30/20 Encounter Time: 10:30 Subjective: Patient seen and examined for sepsis with bilateral pneumonia. Anxious. Shortness of breath slightly better. Dry cough. - Objective Vital Signs & Weight: Vital Signs (12 hours) Temp Pulse Resp BP Pulse Ox 03/30/20 16:59 98.5 F 70 18 117/82 98 03/30/20 12:04 98.2 F 63 18 125/82 99 03/30/20 09:00 98.3 F 79 18 117/67 98 Weight Admit Weight 194 lb 1.6 oz Weight 194 lb 1.6 oz I&O: 03/29/20 03/30/20 03/31/20 06:59 06:59 06:59 Intake Total 1600 850 Balance 1600 850 Result Diagrams: 03/30/20 05:57 03/30/20 05:57 Additional Labs: Abnormal Lab Results - Last 48 hrs 03/29/20 06:08: Potassium 3.3 L, Total Bilirubin Less than 0.2 L, Albumin 3.1 L, Globulin 3.9 H, Albumin/Globulin Ratio 0.8 L 03/29/20 06:08: WBC 20.6 H, RBC 3.79 L, Hgb 9.2 L, Hct 29.4 L, MCV 77.7 L, MCH 24.4 L, MCHC 31.4 L, RDW 14.9 H 03/29/20 06:08: Iron 17 L, C-Reactive Protein 5.94 H 03/29/20 06:08: APTT 37.5 H 03/30/20 05:57: Potassium 3.3 L, Albumin 3.0 L, Globulin 4.0 H, Albumin/Globulin Ratio 0.8 L 03/30/20 05:57: WBC 11.6 H, RBC 4.16 L, Hgb 9.8 L, Hct 31.6 L, MCV 76.0 L, MCH 23.6 L, MCHC 31.0 L, RDW 15.0 H, Neutrophils # 6.6 H, Lymphocytes # 3.8 H, Monocytes # 1.0 H Microbiology - Entire Visit 03/29/20 13:52 Nasopharyngeal swab Respiratory Virus Panel (PCR) - Final Radiology Reviewed by me: Yes (CT chestbilateral pneumonia) Hospitalist ROS - Review of Systems Cardiovascular: denies: chest pain, palpitations, orthopnea, paroxysmal noc. dyspnea, edema, light headedness, other Gastrointestinal: denies: nausea, vomiting, abdominal pain, diarrhea, constipation, melena, hematochezia, other - Medication Medications: Active Medications Generic Name Dose Route Start Last Admin Trade Name Freq PRN Reason Stop Dose Admin Hydrocodone Bitart/Acetaminophen 1 tab 03/27/20 21:37 03/30/20 18:08 Hydrocodone/Acetaminophen 5/325 Mg Tablet PO 1 tab Q4H PRN Administration Pain Albuterol Sulfate 2 puff 03/28/20 10:30 03/30/20 18:13 Albuterol 200 Puff (6.7gm Inhaler) INH 2 puff [id number] JOHN Administration Cyclobenzaprine HCl 10 mg 03/29/20 16:22 03/29/20 21:21 Cyclobenzaprine 10 Mg Tab PO 04/01/20 16:23 10 mg TID PRN Administration Muscle Spasm Famotidine 20 mg 03/28/20 21:00 03/30/20 08:49 Famotidine 20 Mg Tab PO 20 mg BID JOHN Administration Guaifenesin 600 mg 03/28/20 09:00 03/30/20 08:49 Guaifenesin Er 600 Mg Tab PO 600 mg Q12HR JOHN Administration Cefepime HCl 2 gm/ Sodium 100 mls @ 200 mls/hr 03/28/20 16:00 03/30/20 15:36 Chloride IVPB 100 mls 0400,1600 JOHN Administration Levofloxacin 750 mg/ Device 150 mls @ 100 mls/hr 03/29/20 10:00 03/30/20 08:52 IVPB 150 mls Q24HR JOHN Administration Multivitamins 1 tab 03/30/20 09:00 03/30/20 08:49 Multivit, Therapeutic 1 Tab PO 1 tab DAILY JOHN Administration Saccharomyces Boulardii 250 mg 03/30/20 09:00 03/30/20 08:49 Saccharomyces Boulardii 250 Mg Cap PO 250 mg DAILY JOHN Administration Sodium Chloride 10 ml 03/28/20 09:00 03/30/20 08:49 Flush - Normal Saline 10 Ml Syringe IVF 10 ml Q12HR JOHN Administration - Exam General Appearance: ill appearing Neck: supple, no JVD Heart: RRR, no gallops, no rubs, normal peripheral pulses Respiratory: no wheezes, normal chest expansion, rales, rhonchi Gastrointestinal: soft, non-tender, normal bowel sounds, no guarding, no rigidity Extremities: no cyanosis, no clubbing Skin: normal turgor Neurological: no new deficit Psychiatric: normal affect, A&O x 3 Hosp A/P - Plan DVT proph w/lovenox, DVT proph w/SCDs Acute hypoxic respiratory failure Bilateral pneumonia? Gram-negative Severe sepsis due to above Hyponatremia/hypokalemia Obesity with a BMI 35.5 Chronic anemia suspected due to iron deficiency Tobacco dependencecounseled Anxiety Plan: Continue IV vancomycin, cefepime and Levaquin. Monitor vancomycin level. Respiratory viral panel negative. COVID-19 testing negative. Will check strep pneumonia and Legionella urinary antigen. Add benzodiazepines for anxiety. Await infectious disease input. Check chest x-ray in a.m. Will DC COVID-19 isolation.
[2020-03-30] MEDS ORDERED: Albuterol 200 PUFF (6.7GM INHALER) INH PRN (19:37)
[2020-03-30] MEDS: ALPRAZolam 0.25 MG TAB PO PRN (19:52)
[2020-03-31] MEDS: Vancomycin HCl 1.25 GM in Sodium Chloride 0.9% 250 ML 250 ML IVPB SCH ×2 (01:27→08:40)
[2020-03-31] MEDS: Cefepime 2 GM in Sodium Chloride 0.9% 100 ML IVPB SCH (03:27)
[2020-03-31 08:12] LABS: #Eosinphils 0.3 thou/uL (0.0-0.7); #Lymphocytes 2.6 thou/uL (1.20-3.40); #Monocytes 1.1 thou/uL (0.11-0.59); #Neutrophils 9.5 thou/uL (1.40-6.50); %Basophils 0.3 % (0.0-1.0); %Eosinophils 1.9 % (0.0-10.0); %Lymphocytes 19.2 % (21.0-51.0); %Monocytes 7.8 % (0.0-10.0); %Neutrophils 70.8 % (42.0-75.0); Hemoglobin 10.7 g/dL (12.0-16.0); Mean Corpuscular HGB CONC 30.7 g/dL (32.0-36.0); Mean Corpuscular Hemoglobin 23.8 pg (27.0-31.0); Mean Corpuscular Volume 77.5 fL (78.0-98.0); Mean Platelet Volume 9.3 fL (7.4-10.4); Platelet Count 335 thou/uL (130-400); RBC Distribution Width 15.1 % (11.5-14.5); Red Blood Cell (RBC) Count 4.49 mill/uL (4.20-5.40); White Blood Cell (WBC) Count 13.5 thou/uL (4.8-10.8)
[2020-03-31 08:35] LABS: ALT (SGPT) Less than 7 U/L (8-55); AST (SGOT) 12 U/L (5-34); Albumin 3.3 g/dL (3.5-5.0); Alkaline Phosphatase 71 U/L (40-110); Anion Gap 14 mmol/L (10-20); BUN (Urea Nitrogen) 11 mg/dL (7.0-18.7); Bilirubin, Total 0.2 mg/dL (0.2-1.2); Calc. Creatinine Clearance 145 mL/min (70-130); Calcium 8.5 mg/dL (7.8-10.44); Carbon Dioxide 20 mmol/L (22-29); Chloride 105 mmol/L (98-107); Estimated GFR-MDRD Greater than 90; Globulin 4.1 g/dL (2.4-3.5); Glucose 97 mg/dL (70-105); Potassium 3.8 mmol/L (3.5-5.1); Protein, Total 7.4 g/dL (6.0-8.3); Sodium 135 mmol/L (136-145)
[2020-03-31] MEDS: Famotidine 20 MG TAB PO SCH (08:38)
[2020-03-31] MEDS: Saccharomyces boulardii 250 MG CAP PO SCH (08:39)
[2020-03-31] MEDS: ALPRAZolam 0.25 MG TAB PO PRN (08:40)
[2020-03-31] MEDS: guaiFENesin ER 600 MG TAB PO SCH (08:40)
[2020-03-31] MEDS: Multivit, Therapeutic 1 TAB PO SCH (08:40)
[2020-03-31] MEDS ORDERED: Loratadine 10 MG TAB PO SCH (09:00)
[2020-03-31] MEDS ORDERED: Enoxaparin Sodium 40 MG/0.4 ML SYRINGE SC SCH (09:00)
--- NOTE | 2020-03-31 09:15 | RAD ---
CHEST 2 VIEWS: HISTORY: Followup pneumonia. COMPARISON: CT angiogram chest 03/27/2020. FINDINGS: Heart size is normal. The lungs are clear. IMPRESSION: Unremarkable 2-view chest. Given the rapid resolution of the bilateral parenchymal changes from 03/27, I would certainly consider that these parenchymal changes are related to acute edema rather than infectious pneumonia. POS: RRE
[2020-03-31 14:49] VITALS: BP 122/81; TEMP 98.2
--- NOTE | 2020-03-31 17:41 | PDOC.DS.DS ---
Provider - Provider Date of Admission: 03/27/20 20:46 Date of Discharge: 03/31/20 Admitting Provider: Jennifer March MD Consultations: Pulmonary Primary Care Physician: Remy Duckworth MD Course - Hospital Course Hospital Course: Patient is a 39-year-old female presented to the hospital on 03/27 with shortness of breath and cough. She was started on O2 supplementation due to room air saturation around 90%. CT scan of the chest in the emergency room was negative for pulmonary embolism. It showed bilateral diffuse confluent groundglass infiltrates with upper lobe and superior segment lower lobe predominance. The periphery of the lung was relatively spared. She was started on vancomycin with cefepime. She was evaluated by pulmonary Dr. Winn who recommended addition of vancomycin to the above antibiotics. Due to concern for possible pulmonary edema an echocardiogram was done that showed ejection fraction of 55 to 60% with diastolic dysfunction, mild mitral regurgitation and mild tricuspid regurgitation. Her symptoms gradually improved. On the day of discharge she is saturating 100% on room air. Chest x-ray this morning showed rapid resolution of bilateral parenchymal changes compared to 03/27. The possibility could be atypical pneumonia versus pulmonary edema. I discussed with Dr. Winn on the day of discharge who recommended Levaquin for total of 7 days. Patient appears stable for discharge. She was advised to follow-up with primary care physician as well as Dr. Winn as outpatient. She was advised to return to emergency room if she develops any new symptoms. Final diagnosis: Acute hypoxic respiratory failure Severe sepsis due to bilateral pneumonia?atypical Hyponatremia/hypokalemia Obesity with a BMI 35.5 Chronic anemia suspected due to iron deficiency Tobacco dependencecounseled Anxiety Resuscitation Status: 03/27/20 21:38 Resuscitation Status Routine Resuscitation Status: FULL: Full Resuscitation - Labs Lab Results: 03/31/20 07:53 03/31/20 07:53 Abnormal Lab Results - Last 48 hrs 03/30/20 05:57: Potassium 3.3 L, Albumin 3.0 L, Globulin 4.0 H, Albumin/Globulin Ratio 0.8 L 03/30/20 05:57: WBC 11.6 H, RBC 4.16 L, Hgb 9.8 L, Hct 31.6 L, MCV 76.0 L, MCH 23.6 L, MCHC 31.0 L, RDW 15.0 H, Neutrophils # 6.6 H, Lymphocytes # 3.8 H, Monocytes # 1.0 H 03/31/20 07:53: Sodium 135 L, Carbon Dioxide 20 L, ALT Less than 7 L, Albumin 3.3 L, Globulin 4.1 H, Albumin/Globulin Ratio 0.8 L 03/31/20 07:53: WBC 13.5 H, Hgb 10.7 L, Hct 34.8 L, MCV 77.5 L, MCH 23.8 L, MCHC 30.7 L, RDW 15.1 H, Lymphocytes % 19.2 L, Neutrophils # 9.5 H, Monocytes # 1.1 H Microbiology - Entire Visit 03/29/20 13:52 Nasopharyngeal swab Respiratory Virus Panel (PCR) - Final - Diagnostic Interpretation CT scan - chest Status: image reviewed by me Additional comments: Diffuse confluent ground glass infiltrates with upper lobe and superior segment lower lobe predominance. The periphery of the lungs is relatively spared. Pulmonary edema is a consideration, but infection such as COVID is strongly considered in the differential as well. Correlate with the remainder of the clinical picture and lab work. - Physical Exam Vitals: Vital Signs (12 hours) Temp Pulse Resp BP Pulse Ox 03/31/20 14:49 98.2 F 80 16 122/81 100 03/31/20 11:02 98.3 F 80 18 131/93 H 100 03/31/20 08:40 100 03/31/20 07:14 97.6 F 77 18 122/84 100 Weight Admit Weight 194 lb 1.6 oz Weight 194 lb 1.6 oz Physical Exam: The patient was seen and examined on the day of discharge. Plan - Discharge Medications Prescriptions: Levofloxacin [Levaquin] 750 mg PO DAILY #4 tab Home Medications: Medication Instructions Recorded Confirmed Type Levofloxacin [Levaquin] 750 mg PO DAILY #4 tab 03/31/20 Rx Allergies: meclizine Allergy (Verified 03/27/20 23:32) lorazepam [From Ativan] Adverse Reaction (Verified 03/27/20 23:32) - Follow up Plan Referrals: Nilsa Jenkins [employer] ASSET MANAGER [[facility]] - 04/01/20 1:30 pm (Please remember to bring all medication bottles to clinic and all hospital discharge paperwork. The clinic will call you this same day at 4pm for registration. ) Liam Winn MD [Active] - 2-3 Weeks Disposition: HOME Quality - Care Measures CORE MEASURES:: N/A
== END 2020-03-31 17:13 | disposition home or self-care (01) | DRG 871 ==
LOC: ERS 18:34 → T4-A 20:46
PROVIDERS: ADMIT Internal Medicine; ATTEND Internal Medicine
PROC: 8E0ZXY6 Isolation (ICD-10-PCS; principal; 2020-03-27)
DX: A41.9 Sepsis, unspecified organism (principal); J96.01 Acute respiratory failure with hypoxia; J15.9 Unspecified bacterial pneumonia; E87.1 Hypo-osmolality and hyponatremia; Z20.828 Contact with and (suspected) exposure to other viral communicable diseases; R65.20 Severe sepsis without septic shock; E87.6 Hypokalemia; D50.9 Iron deficiency anemia, unspecified; E66.9 Obesity, unspecified; F17.210 Nicotine dependence, cigarettes, uncomplicated; F41.9 Anxiety disorder, unspecified; F12.10 Cannabis abuse, uncomplicated; Z98.51 Tubal ligation status; Z79.899 Other long term (current) drug therapy; Z88.8 Allergy status to other drugs, medicaments and biological substances
CPT/HCPCS: 36415; 71046; 80048; 80053; 80202; 82728; 83540; 83550; 83735; 83880; 84100; 85025; 85379; 85610; 85730; 86140; 87389; 87449; 87633; 87635; 87899; 93306; 96374; 96375; J0692; J1100; J1650; J1956; J2270; J2916; J3370; J3490; J7050; U0002; U0003

== ENCOUNTER 2020-07-23 08:27 | Observation (INO) | payer SELFPAY ==
[2020-07-23] MEDS ORDERED: Ondansetron PF 4 MG/2 ML Vial ONE (09:00)
[2020-07-23 09:07] LABS: Pregnancy Test - Urine (BHCG) Negative (Negative); Pregu Control Background? CLEAR/WHITE (CLR/WHITE); Pregu Control Bar Appear? YES (CONTROL BAR); Specific Gravity 1.007 (1.002-1.036)
[2020-07-23 09:14] LABS: #Lymphocytes 1.4 thou/uL (1.20-3.40); #Neutrophils 15.8 thou/uL (1.40-6.50); %Basophils 0.1 % (0.0-1.0); %Eosinophils 0.2 % (0.0-10.0); %Lymphocytes 7.4 % (21.0-51.0); %Monocytes 5.4 % (0.0-10.0); %Neutrophils 86.9 % (42.0-75.0); Hemoglobin 10.2 g/dL (12.0-16.0); Mean Corpuscular HGB CONC 30.9 g/dL (32.0-36.0); Mean Corpuscular Hemoglobin 24.2 pg (27.0-31.0); Mean Corpuscular Volume 78.3 fL (78.0-98.0); Mean Platelet Volume 9.7 fL (7.4-10.4); Platelet Count 378 thou/uL (130-400); RBC Distribution Width 17.2 % (11.5-14.5); Red Blood Cell (RBC) Count 4.21 mill/uL (4.20-5.40); White Blood Cell (WBC) Count 18.2 thou/uL (4.8-10.8)
[2020-07-23 09:17] LABS: Actual Bicarbonate (HCO3v) 23 mEq/L (22-28); Base Excess -0.3 mEq/L (-2.0 to +3.0); Calcium, Ionized (venous) 1.12 mmol/L (1.16-1.32); Chloride (VBG) 111 mmol/L (98-106); Hemoglobin (Hb) 11.3 g/dL (11.7-15.5); Potassium (VBG) 4.47 mmol/L (3.70-5.30); Sodium 140.4 mmol/L (133-146); pH (venous) 7.45 (7.32-7.43)
[2020-07-23 09:24] LABS: Cocaine Metabolite Screen Detected (NotDetected); Medtox Reader # READER 4; Methamphetamine Not Detected (NotDetected); Opiate Screen Detected (NotDetected); Phencyclidine (PCP) Detected (NotDetected); THC/Cannabinoid Screen Detected (NotDetected)
[2020-07-23 09:25] LABS: Amphetamine Not Detected (NotDetected); Barbiturates Screen Not Detected (NotDetected); Benzodiazepine Screen Detected (NotDetected); Methadone Not Detected (NotDetected); Oxycodone Screen Not Detected (NotDetected); Tricyclic Screen Detected (NotDetected)
[2020-07-23 09:26] LABS: Medtox Control Line Valid? VALID (VALID)
[2020-07-23 09:31] LABS: ALT (SGPT) 14 U/L (8-55); AST (SGOT) 18 U/L (5-34); Acetaminophen Less than 6.0 mcg/mL (10.0-30.0); Albumin 3.9 g/dL (3.5-5.0); Alcohol Less than 10 mg/dL (Less than 10); Alkaline Phosphatase 93 U/L (40-110); Anion Gap 14 mmol/L (10-20); BUN (Urea Nitrogen) 15 mg/dL (7.0-18.7); Bilirubin, Total Less than 0.2 mg/dL (0.2-1.2); Calc. Creatinine Clearance 0 mL/min (70-130); Calcium 9.1 mg/dL (7.8-10.44); Carbon Dioxide 22 mmol/L (22-29); Chloride 108 mmol/L (98-107); Globulin 4.3 g/dL (2.4-3.5); Glucose 106 mg/dL (70-105); Magnesium 2.3 mg/dL (1.6-2.6); Potassium 4.3 mmol/L (3.5-5.1); Protein, Total 8.2 g/dL (6.0-8.3); Salicylate Less than 8.0 mg/dL (15.0-30.0); Sodium 140 mmol/L (136-145)
[2020-07-23] MEDS ORDERED: Ondansetron PF 4 MG/2 ML Vial IVP PRN (10:33)
[2020-07-23] MEDS ORDERED: Ondansetron ODT 4 MG TAB PO PRN (10:33)
[2020-07-23] MEDS ORDERED: Calcium Carbonate 500 MG ChewTAB PO PRN (10:33)
[2020-07-23] MEDS ORDERED: Acetaminophen 325 MG TAB PO PRN (10:33)
[2020-07-23] MEDS ORDERED: Acetaminophen 650 MG Suppository PR PRN (10:33)
[2020-07-23] MEDS ORDERED: Senokot S 8.6-50 MG TAB PO PRN (10:33)
[2020-07-23] MEDS ORDERED: cloNIDine 0.1 MG TAB PO PRN (10:37)
[2020-07-23 13:17] LABS: Bacteria/HPF 4+ HPF (None Seen); Bilirubin Negative (Negative); Blood, Urine 3+ (Negative); Clarity Turbid (Clear); Glucose, Urine (Dipstick) Normal (Negative); Ketone, Urine Negative (Negative); Leukocyte 25 Leu/uL (Negative); Nitrite 2+ (Negative); Protein, Urine (Dipstick) 10 mg/dL (Neg-Trace); RBC/HPF Greater than 50 HPF (0-3); Specific Gravity, Urine 1.007 (1.002-1.036); Squamous Epithelial 0-3 HPF (0-3); Urobilinogen Normal mg/dL (Less than 2); pH, Urine 6.5 (5.0-9.0)
[2020-07-23 13:47] LABS: Troponin I 0.032 ng/mL (< 0.028)
[2020-07-23 14:05] VITALS: BMI 36.0
[2020-07-23] MEDS: Sodium Chloride 0.9% 1,000 ML IV SCH ×2 (15:27)
[2020-07-23] MEDS ORDERED: Nitroglycerin 0.4 MG TAB (25 Tab Bottle) SL PRN (15:58)
[2020-07-23] MEDS ORDERED: Aspirin 325 MG TAB PO SCH (16:00)
[2020-07-23] MEDS: Enoxaparin Sodium 40 MG/0.4 ML SYRINGE SC SCH (20:28)
[2020-07-24] MEDS: Sodium Chloride 0.9% 1,000 ML IV SCH ×4 (01:34→18:16)
[2020-07-24 04:52] LABS: #Eosinphils 0.4 thou/uL (0.0-0.7); #Lymphocytes 2.7 thou/uL (1.20-3.40); #Neutrophils 6.5 thou/uL (1.40-6.50); %Basophils 0.1 % (0.0-1.0); %Eosinophils 3.7 % (0.0-10.0); %Lymphocytes 25.4 % (21.0-51.0); %Monocytes 9.1 % (0.0-10.0); %Neutrophils 61.8 % (42.0-75.0); Hemoglobin 9.7 g/dL (12.0-16.0); Mean Corpuscular HGB CONC 31.5 g/dL (32.0-36.0); Mean Corpuscular Hemoglobin 24.9 pg (27.0-31.0); Mean Corpuscular Volume 79.1 fL (78.0-98.0); Mean Platelet Volume 9.7 fL (7.4-10.4); Platelet Count 348 thou/uL (130-400); Red Blood Cell (RBC) Count 3.88 mill/uL (4.20-5.40); White Blood Cell (WBC) Count 10.5 thou/uL (4.8-10.8)
[2020-07-24 05:12] LABS: Anion Gap 11 mmol/L (10-20); BUN (Urea Nitrogen) 9 mg/dL (7.0-18.7); Calc. Creatinine Clearance 113 mL/min (70-130); Carbon Dioxide 23 mmol/L (22-29); Chloride 106 mmol/L (98-107); Glucose 95 mg/dL (70-105); Potassium 3.5 mmol/L (3.5-5.1); Sodium 136 mmol/L (136-145)
[2020-07-24 05:19] LABS: Troponin I Less than 0.010 ng/mL (< 0.028)
[2020-07-24] MEDS ORDERED: Aspirin 325 mg Enteric Coated Tablet PO SCH (09:00)
[2020-07-24] MEDS ORDERED: FLU VACC QS2020-21(6MOS UP)/PF 60 MCG/0.5 ML SYRINGE IM ONE (09:00)
[2020-07-24] MEDS: Aspirin 81 mg Enteric Coated Tablet PO SCH (09:24)
[2020-07-24] MEDS: cefTRIAXone\\ROCEPHIN 1 GM in Sodium Chloride 0.9% 100 ML IVPB SCH (10:40)
[2020-07-24] MEDS: Enoxaparin Sodium 40 MG/0.4 ML SYRINGE SC SCH (22:33)
[2020-07-25] MEDS: Sodium Chloride 0.9% 1,000 ML IV SCH ×4 (01:22→23:38)
[2020-07-25] MEDS: Aspirin 81 mg Enteric Coated Tablet PO SCH (08:01)
[2020-07-25] MEDS: cefTRIAXone\\ROCEPHIN 1 GM in Sodium Chloride 0.9% 100 ML IVPB SCH (09:12)
[2020-07-25] MEDS: Enoxaparin Sodium 40 MG/0.4 ML SYRINGE SC SCH (21:23)
[2020-07-25] MEDS: Nitrofurantoin Monohyd/M-Cryst 100 MG CAP PO SCH (21:23)
[2020-07-26] MEDS: Sodium Chloride 0.9% 1,000 ML IV SCH ×2 (05:30→11:04)
[2020-07-26] MEDS: Aspirin 81 mg Enteric Coated Tablet PO SCH (08:19)
[2020-07-26] MEDS: Nitrofurantoin Monohyd/M-Cryst 100 MG CAP PO SCH (08:20)
[2020-07-26 16:04] VITALS: BP 142/91; TEMP 98
== END 2020-07-26 18:17 | disposition home or self-care (01) ==
LOC: ERS 08:27 → EEVIPCON 10:49 → ERHOLD 10:49 → 2NO 13:53
PROVIDERS: ADMIT Internal Medicine; ATTEND Internal Medicine
DX: T42.4X2A Poisoning by benzodiazepines, intentional self-harm, initial encounter (principal); T39.312A Poisoning by propionic acid derivatives, intentional self-harm, initial encounter; T46.6X2A Poisoning by antihyperlipidemic and antiarteriosclerotic drugs, intentional self-harm, initial encounter; T39.1X2A Poisoning by 4-Aminophenol derivatives, intentional self-harm, initial encounter; R11.0 Nausea; F41.9 Anxiety disorder, unspecified; F32.9 Major depressive disorder, single episode, unspecified; D72.828 Other elevated white blood cell count; D53.9 Nutritional anemia, unspecified; F17.210 Nicotine dependence, cigarettes, uncomplicated; E78.5 Hyperlipidemia, unspecified; F12.10 Cannabis abuse, uncomplicated; M19.90 Unspecified osteoarthritis, unspecified site; E66.9 Obesity, unspecified; Z68.36 Body mass index [BMI] 36.0-36.9, adult; Z88.8 Allergy status to other drugs, medicaments and biological substances
CPT/HCPCS: 36415; 71045; 80048; 80053; 80306; 80307; 81003; 81015; 81025; 82805; 83735; 84443; 84484; 85025; 87086; 93005; 93010; 94760; 96372; 96374; 96375; 96376; G0378; J0696; J1650; J2405; J3490